=== PATIENT | female | born 1990 | race Asian ===

== ENCOUNTER 2017-02-24 06:46 | Inpatient (IN) | payer MEDICAID ==
[~2017-02-24] VITALS: Ht 170.2 cm; Wt 81.6 kg
[2017-02-24] MEDS ORDERED: DEXT 5%/LR + PITOCIN 20UNITS/L 1,000 ML IV SCH ×2 (06:55→07:50)
[2017-02-24] MEDS ORDERED: LACTATED RINGERS 1,000 ML IV SCH (06:55)
[2017-02-24] MEDS ORDERED: PENICILLIN G POTASSIUM 5 MMU in DEXT 5% WATER 100 ML IV SCH (07:00)
[2017-02-24] MEDS ORDERED: METHYLERGONOVINE MALEATE 0.2 MG/ML IM PRN (07:00)
[2017-02-24] MEDS ORDERED: CARBOPROST TROMETHAMINE 250 MCG/ML AMPUL IM PRN (07:00)
[2017-02-24] MEDS ORDERED: LIDOCAINE HCL 1% 20ML VIAL (Pyxis) INJ INFIL SCH (07:00)
[2017-02-24] MEDS ORDERED: NALOXONE HCL 0.4 MG/ML 1ML VIAL IM PRN (07:00)
[2017-02-24] MEDS ORDERED: BUTORPHANOL TARTRATE 2 MG/ML VIAL IV PRN (07:00)
[2017-02-24] MEDS ORDERED: PNV1TABL76 MT (07:01)
[2017-02-24 07:25] LABS: INR 0.9; PARTIAL THROMBOPLASTIN TIME 26.7 sec (23.4-31.0); PROTHROMBIN TIME 9.4 sec (9.4-11.6)
[2017-02-24 07:50] LABS: HEPATITIS B SURFACE ANTIGEN NEGATIVE
[2017-02-24 07:55] LABS: BASOPHILS % 0.8 % (0.0-2.0); EOSINOPHILS % 0.6 % (0.0-5.0); HEMATOCRIT. 30.2 % (36.0-48.0); HEMOGLOBIN. 9.4 g/dL (12.0-16.0); LYMPHOCYTES % 35.9 % (20.0-50.0); MEAN CORPUSCULAR HEMOGLOBIN 20.7 pg (28.0-32.0); MEAN CORPUSCULAR VOLUME 66.2 fL (81.0-99.0); MEAN PLATELET VOLUME 10.1 fl (7.4-10.4); MONOCYTES % 7.1 % (2.0-8.0); NEUTROPHILS % 55.6 % (40.0-76.0); PLATELET 210 x1000/uL (130-400); RED BLOOD CELL COUNT 4.55 mill/uL (4.2-5.4)
[2017-02-24] MEDS ORDERED: IBUPROFEN 400MG TABLET PO PRN (08:00)
[2017-02-24] MEDS ORDERED: HEMORRHOIDAL SUPP PR PRN (08:00)
[2017-02-24] MEDS ORDERED: DIPHENHYDRAMINE 25MG CAPSULE PO PRN (08:00)
[2017-02-24] MEDS ORDERED: TETANUS, DIPHTHERIA, PERTUSSIS VAC/PF 0.5ML (>7YR OLD) IM ONE (08:00)
[2017-02-24] MEDS ORDERED: LANOLIN OINT 0.25 GM TUBE TOP PRN (08:00)
[2017-02-24] MEDS ORDERED: RHO(D) IMMUNE GLOBULIN 300 MCG/SYR IM PRN (08:00)
[2017-02-24] MEDS ORDERED: ACETAMINOPHEN WITH CODEINE 300/30MG TABLET PO PRN ×2 (08:00)
[2017-02-24] MEDS ORDERED: GLYCERIN/WITCH HAZEL LEAF MEDICATED PAD TOP PRN (08:00)
[2017-02-24 08:14] LABS: GLUCOSE URINE NEGATIVE (NEGATIVE); KETONES URINE TRACE (NEGATIVE); LEUKOCYTE ESTERASE URINE NEGATIVE (NEGATIVE); NITRITE URINE NEGATIVE (NEGATIVE); OCCULT BLOOD URINE TRACE (NEGATIVE); PH URINE 6.5 (4.5-8.0); PROTEIN URINE 2+ (NEGATIVE); SPECIFIC GRAVITY URINE 1.022 (1.005-1.030); UROBILINOGEN URINE 0.2 E.U./dL (0.2-1.0)
[2017-02-24 08:16] LABS: CLARITY URINE SL HAZY (CLEAR); COLOR URINE YELLOW (YELLOW)
[2017-02-24 08:19] LABS: RUBELLA IGG 0.7 IU/mL (4.99-10)
[2017-02-24 08:34] LABS: *BARBITURATES SCREEN URINE NEGATIVE (NEGATIVE); *BENZODIAZEPINES SCREEN URINE NEGATIVE (NEGATIVE); *COCAINE SCREEN URINE NEGATIVE (NEGATIVE); CANNABINOID URINE SCREEN NEGATIVE (NEGATIVE); METHADONE URINE SCREEN NEGATIVE (NEGATIVE); OPIATES URINE SCREEN NEGATIVE (NEGATIVE); PHENCYCLIDINE URINE SCREEN NEGATIVE (NEGATIVE)
[2017-02-24 08:35] LABS: *AMPHETAMINES SCREEN URINE PRESUMTIVE POSITIVE (NEGATIVE)
[2017-02-24 08:46] LABS: T4 FREE 1.25 ng/dL (0.76-1.46)
[2017-02-24 10:30] VITALS: BP 105/76
[2017-02-24 11:00] VITALS: BP 108/78
[2017-02-24 16:15] LABS: PLATELET ESTIMATE NORMAL
[2017-02-24 19:35] VITALS: BP 116/77
[2017-02-24] MEDS: DOCUSATE SODIUM 100MG CAPSULE PO SCH (22:53)
[2017-02-25 04:00] VITALS: BP 120/87
[2017-02-25 08:00] VITALS: BP 126/87
[2017-02-25] MEDS: PRENATAL VIT/FE FUMARATE/FA TABLET PO SCH (08:24)
[2017-02-25 11:14] LABS: BASOPHILS % 0.5 % (0.0-2.0); EOSINOPHILS % 1.2 % (0.0-5.0); HEMATOCRIT. 29.9 % (36.0-48.0); HEMOGLOBIN. 9.3 g/dL (12.0-16.0); LYMPHOCYTES % 27.2 % (20.0-50.0); MEAN CORPUSCULAR HEMOGLOBIN 20.7 pg (28.0-32.0); MEAN CORPUSCULAR VOLUME 66.3 fL (81.0-99.0); MEAN PLATELET VOLUME 10.2 fl (7.4-10.4); MONOCYTES % 6.6 % (2.0-8.0); NEUTROPHILS % 64.5 % (40.0-76.0); PLATELET 241 x1000/uL (130-400); RED BLOOD CELL COUNT 4.51 mill/uL (4.2-5.4); RED CELL DISTRIBUTION WIDTH 18.1 % (11.6-14.6)
[2017-02-25] MEDS: FERROUS SULFATE 325MG TABLET PO SCH ×2 (12:56→18:39)
[2017-02-25 15:39] VITALS: BP 127/86
[2017-02-25] MEDS: DOCUSATE SODIUM 100MG CAPSULE PO SCH (21:32)
[2017-02-26] MEDS ORDERED: MEDROXYPROGESTERONE ACETATE 150MG/ML VIAL IM SCH (09:00)
[2017-02-26] MEDS: FERROUS SULFATE 325MG TABLET PO SCH (09:08)
[2017-02-26] MEDS: PRENATAL VIT/FE FUMARATE/FA TABLET PO SCH (09:08)
[2017-03-01 04:13] LABS: AMPHETAMINE CONF URINE Positive (.)
== END 2017-02-26 11:00 | disposition home or self-care (01) | DRG 560 ==
LOC: L&D 06:46 → OBSVTOIN 06:46 → 7EST PP/OB 10:30
PROVIDERS: ADMIT Specialist; ATTEND Specialist
PROC: 10E0XZZ Delivery of Products of Conception, External Approach (ICD-10-PCS; principal; 2017-02-26)
DX: O60.14X0 Preterm labor third trimester with preterm delivery third trimester, not applicable or unspecified (principal); E03.9 Hypothyroidism, unspecified; O99.02 Anemia complicating childbirth; O99.284 Endocrine, nutritional and metabolic diseases complicating childbirth; D64.9 Anemia, unspecified; Z3A.33 33 weeks gestation of pregnancy; Z37.0 Single live birth
CPT/HCPCS: 36415; 80305; 80307; 81001; 84439; 84443; 85025; 85610; 85730; 86592; 86703; 86762; 86850; 86900; 87340; 99281; G0378; J1050; J2540; J2590; J7060; J7120